=== PATIENT | male | born 1985 | race Caucasian/White ===

== ENCOUNTER 2016-12-07 21:34 | Emergency (ER) | payer MEDICAID ==
[~2016-12-07] VITALS: Ht 193 cm; Wt 127.5 kg
[~2016-12-07 21:34] MED LIST: ALPR0.5T6 PO; ATEN50TA41 PO; DIPH25CA61 PO; DISU500T PO; FAMO20TA7 PO; FLUO20CA8 PO; HYDR-3241 PO; LISI-167 PO; ONDA-39 PO
[2016-12-08] MEDS ORDERED: MORPHINE SULFATE 4 MG/ML, 1ML ONE ×2 (00:19→01:04)
[2016-12-08] MEDS ORDERED: ONDANSETRON 2MG/ML, 2ML ONE (00:19)
[2016-12-08] MEDS: MORPHINE SULFATE 4 MG/ML, 1ML IVPush PRN ×2 (00:22→01:05)
[2016-12-08] MEDS ORDERED: ONDANSETRON 2MG/ML, 2ML IVPush ONE (00:30)
[2016-12-08] MEDS ORDERED: SODIUM CHLORIDE 0.9% 1,000ML IVBOLUS ONE (00:30)
[2016-12-08 00:42] LABS: ASPARTATE AMINO TRANSFERASE 65 U/L (15-37); BLOOD UREA NITROGEN 6 mg/dL (7-18)
[2016-12-08 02:15] VITALS: BP 130/80
== END 2016-12-08 02:43 | disposition home or self-care (01) ==
LOC: ED 23:58
DX: K29.20 Alcoholic gastritis without bleeding (principal); I10 Essential (primary) hypertension; R10.13 Epigastric pain; E87.6 Hypokalemia
CPT/HCPCS: 36415; 80053; 80307; 81001; 83690; 85025; 87086; 96361; 96374; 96375; 96376; 99284; J2405; J7030

== ENCOUNTER 2016-12-23 02:24 | Emergency (ER) | payer MEDICAID ==
[~2016-12-23] VITALS: Ht 193 cm; Wt 114.2 kg
[2016-12-23] MEDS ORDERED: SODIUM CHLORIDE 0.9% 1,000ML IVBOLUS ONE (03:00)
[2016-12-23] MEDS ORDERED: SODIUM CHLORIDE FLUSH 10ML SYR IVF ONE (03:00)
[2016-12-23 05:08] LABS: BLOOD UREA NITROGEN 7 mg/dL (7-18)
[2016-12-23 05:10] LABS: ASPARTATE AMINO TRANSFERASE 84 U/L (15-37)
[2016-12-23 06:04] VITALS: BP 132/77
== END 2016-12-23 06:08 | disposition home or self-care (01) ==
LOC: ED 02:49
DX: F10.229 Alcohol dependence with intoxication, unspecified (principal); F19.90 Other psychoactive substance use, unspecified, uncomplicated; I10 Essential (primary) hypertension
CPT/HCPCS: 36415; 80053; 80307; 83690; 85025; 96360; 96361; 99285; J7030

== ENCOUNTER 2017-01-05 23:44 | Emergency (ER) | payer MEDICAID ==
[~2017-01-05] VITALS: Ht 193 cm; Wt 133.7 kg
[2017-01-05 23:47] VITALS: BP 149/98
[2017-01-06] MEDS ORDERED: TRAM50TA2 PO (00:02)
[2017-01-06] MEDS ORDERED: MORPHINE SULFATE 4 MG/ML, 1ML ONE (00:17)
[2017-01-06] MEDS ORDERED: ONDANSETRON 2MG/ML, 2ML ONE (00:18)
[2017-01-06] MEDS ORDERED: FAMOTIDINE 20 MG/2 ML ONE (00:18)
[2017-01-06] MEDS ORDERED: MORPHINE SULFATE 4 MG/ML, 1ML IVPush PRN (00:30)
[2017-01-06] MEDS ORDERED: FAMOTIDINE 20 MG/2 ML IVP ONE (00:30)
[2017-01-06] MEDS ORDERED: SODIUM CHLORIDE 0.9% 1,000ML IVBOLUS ONE (00:30)
[2017-01-06] MEDS ORDERED: ONDANSETRON 2MG/ML, 2ML IVPush ONE (00:30)
[2017-01-06 00:49] LABS: ASPARTATE AMINO TRANSFERASE 85 U/L (15-37); BLOOD UREA NITROGEN 2 mg/dL (7-18)
[2017-01-06] MEDS ORDERED: DIAZEPAM 5 MG TABLET PO ONE (02:30)
[2017-01-06] MEDS ORDERED: DIAZEPAM 5 MG TABLET ONE (02:33)
== END 2017-01-06 02:38 | disposition home or self-care (01) ==
LOC: ED 23:59
DX: K29.20 Alcoholic gastritis without bleeding (principal); R10.13 Epigastric pain; E87.6 Hypokalemia; I10 Essential (primary) hypertension; F10.20 Alcohol dependence, uncomplicated
CPT/HCPCS: 36415; 80053; 80307; 81001; 83690; 85025; 96361; 96374; 96375; 99284; J2405; J7030; S0028

== ENCOUNTER 2017-01-23 12:58 | Emergency (ER) | payer MEDICAID ==
[~2017-01-23] VITALS: Ht 193 cm; Wt 124.1 kg
[~2017-01-23 12:58] MED LIST changes: +TRAM50TA2 PO
[2017-01-23] MEDS ORDERED: SODIUM CHLORIDE FLUSH 10ML SYR IVF ONE (14:00)
[2017-01-23] MEDS ORDERED: SODIUM CHLORIDE 0.9% 1,000ML IVBOLUS ONE (14:00)
[2017-01-23] MEDS ORDERED: ONDANSETRON 2MG/ML, 2ML IVPush ONE (14:00)
[2017-01-23] MEDS ORDERED: ONDANSETRON 2MG/ML, 2ML ONE (14:04)
[2017-01-23] MEDS ORDERED: HYDROmorphone 1 MG/ML, 1ML ONE ×2 (14:04→15:19)
[2017-01-23] MEDS: HYDROmorphone 1 MG/ML, 1ML IVPush PRN ×2 (14:12→15:22)
[2017-01-23 14:18] LABS: BLOOD UREA NITROGEN 7 mg/dL (7-18)
[2017-01-23 14:21] LABS: ASPARTATE AMINO TRANSFERASE 106 U/L (15-37)
[2017-01-23] MEDS ORDERED: FAMOTIDINE 20 MG/2 ML ONE (15:19)
[2017-01-23 16:58] VITALS: BP 153/83
== END 2017-01-23 17:02 | disposition home or self-care (01) ==
LOC: ED 16:00
DX: R10.84 Generalized abdominal pain (principal); I10 Essential (primary) hypertension; F10.20 Alcohol dependence, uncomplicated; Y90.9 Presence of alcohol in blood, level not specified
CPT/HCPCS: 36415; 80053; 81001; 83690; 85025; 85610; 96361; 96374; 96375; 99285; J1170; J2405; J7030

== ENCOUNTER 2017-02-15 15:24 | Emergency (ER) | payer MEDICAID ==
[~2017-02-15] VITALS: Ht 193 cm; Wt 122.2 kg
[~2017-02-15 15:24] MED LIST changes: +CLON-364 PO; +GABA300C10 PO
[2017-02-15 15:35] VITALS: BP 137/74
[2017-02-15] MEDS ORDERED: SODIUM CHLORIDE 0.9% 1,000ML IVBOLUS ONE (16:00)
[2017-02-15] MEDS ORDERED: SODIUM CHLORIDE FLUSH 10ML SYR IVF ONE (16:00)
[2017-02-15 16:28] LABS: ASPARTATE AMINO TRANSFERASE 62 U/L (15-37); BLOOD UREA NITROGEN 6 mg/dL (7-18)
[2017-02-15] MEDS ORDERED: IBUPROFEN 200 MG TABLET PO ONE (17:30)
== END 2017-02-15 18:32 | disposition home or self-care (01) ==
LOC: ED 16:36
DX: M25.572 Pain in left ankle and joints of left foot (principal); M25.571 Pain in right ankle and joints of right foot; M79.672 Pain in left foot; M79.671 Pain in right foot; I10 Essential (primary) hypertension
CPT/HCPCS: 36415; 80053; 80307; 84550; 85025; 99284

== ENCOUNTER 2017-03-26 08:41 | Emergency (ER) | payer MEDICAID, OTHER ==
[~2017-03-26] VITALS: Ht 190.5 cm; Wt 125.0 kg
[2017-03-26 09:24] LABS: ASPARTATE AMINO TRANSFERASE 59 U/L (15-37); BLOOD UREA NITROGEN 3 mg/dL (7-18)
[2017-03-26] MEDS ORDERED: MAALOX/HYOSCYAMINE/LIDOCAINE 45 ML BTL ONE (09:46)
[2017-03-26] MEDS ORDERED: MAALOX/HYOSCYAMINE/LIDOCAINE 45 ML BTL PO ONE (10:00)
[2017-03-26] MEDS ORDERED: POTASSIUM CHLORIDE 20 MEQ PACKET PO ONE (10:00)
[2017-03-26 11:10] VITALS: BP 129/78
== END 2017-03-26 11:11 | disposition home or self-care (01) ==
LOC: ED 08:47
DX: K29.00 Acute gastritis without bleeding (principal); F10.220 Alcohol dependence with intoxication, uncomplicated; I10 Essential (primary) hypertension
CPT/HCPCS: 36415; 80053; 80307; 83690; 85025; 99284

== ENCOUNTER 2017-04-17 10:26 | Emergency (ER) | payer OTHER ==
[~2017-04-17] VITALS: Ht 193 cm; Wt 118.0 kg
[~2017-04-17 10:26] MED LIST changes: -ONDA-39 PO; +ONDA4TAB12 PO
[2017-04-17] MEDS ORDERED: SODIUM CHLORIDE 0.9% 1,000 ML IV ONE (10:59)
[2017-04-17] MEDS ORDERED: SODIUM CHLORIDE FLUSH 10ML SYR IVF ONE (11:00)
[2017-04-17] MEDS ORDERED: FAMOTIDINE 20 MG/2 ML IVP ONE (11:00)
[2017-04-17] MEDS ORDERED: ONDANSETRON 2MG/ML, 2ML IVPush ONE (11:00)
[2017-04-17] MEDS ORDERED: SODIUM CHLORIDE 0.9% 1,000ML IVBOLUS ONE (11:00)
[2017-04-17] MEDS ORDERED: ONDANSETRON 2MG/ML, 2ML ONE (11:07)
[2017-04-17] MEDS ORDERED: FAMOTIDINE 20 MG/2 ML ONE (11:07)
[2017-04-17 12:00] LABS: HEMATOCRIT 47.5 % (39.2-51.8); HEMOGLOBIN 16.3 g/dL (13.7-18.0); WHITE BLOOD COUNT 3.8 x10^3/uL (3.4-10)
[2017-04-17 12:11] LABS: ASPARTATE AMINO TRANSFERASE 102 U/L (15-37); BLOOD UREA NITROGEN 2 mg/dL (7-18)
[2017-04-17] MEDS ORDERED: METOCLOPRAMIDE 5 MG/ML, 2ML IVPush ONE (14:00)
[2017-04-17] MEDS ORDERED: MORPHINE SULFATE 4 MG/ML, 1ML IVPush PRN (14:00)
[2017-04-17 15:21] VITALS: BP 127/71
== END 2017-04-17 15:27 | disposition home or self-care (01) ==
LOC: ED 14:33
DX: K29.20 Alcoholic gastritis without bleeding (principal); R10.84 Generalized abdominal pain; K85.90 Acute pancreatitis without necrosis or infection, unspecified; K70.9 Alcoholic liver disease, unspecified; F10.20 Alcohol dependence, uncomplicated; I10 Essential (primary) hypertension
CPT/HCPCS: 36415; 74022; 76700; 80053; 83690; 85025; 85610; 93005; 96361; 96374; 96375; 99285; J2405; J2765; J7030; S0028

== ENCOUNTER 2017-05-30 06:52 | Emergency (ER) | payer MEDICAID ==
[~2017-05-30] VITALS: Ht 193 cm; Wt 113.8 kg
[2017-05-30] MEDS ORDERED: MAALOX/HYOSCYAMINE/LIDOCAINE 45 ML BTL ONE (07:13)
[2017-05-30 07:26] LABS: HEMATOCRIT 44.7 % (39.2-51.8); HEMOGLOBIN 15.6 g/dL (13.7-18.0); WHITE BLOOD COUNT 9.1 x10^3/uL (3.4-10)
[2017-05-30] MEDS ORDERED: MAALOX/HYOSCYAMINE/LIDOCAINE 45 ML BTL PO ONE (07:30)
[2017-05-30 07:36] LABS: BLOOD UREA NITROGEN 6 mg/dL (7-18)
[2017-05-30 07:37] LABS: ASPARTATE AMINO TRANSFERASE 37 U/L (15-37)
[2017-05-30 08:32] VITALS: BP 118/63
== END 2017-05-30 08:34 | disposition home or self-care (01) ==
LOC: ED 08:08
DX: R10.13 Epigastric pain (principal); I10 Essential (primary) hypertension; Z72.9 Problem related to lifestyle, unspecified
CPT/HCPCS: 36415; 80053; 83690; 85025; 93005; 99285

== ENCOUNTER 2017-05-30 10:34 | Emergency (ER) | payer MEDICAID ==
[~2017-05-30] VITALS: Ht 190.5 cm; Wt 116.8 kg
[2017-05-30 10:48] VITALS: BP 124/64
== END 2017-05-30 11:48 | disposition home or self-care (01) ==
LOC: ED 11:10
DX: F12.10 Cannabis abuse, uncomplicated (principal); G89.29 Other chronic pain; R10.9 Unspecified abdominal pain; F10.229 Alcohol dependence with intoxication, unspecified
CPT/HCPCS: 99283

== ENCOUNTER 2017-05-31 00:34 | Emergency (ER) | payer MEDICAID ==
[~2017-05-31] VITALS: Ht 190.5 cm; Wt 114.0 kg
[2017-05-31 00:47] VITALS: BP 162/99
[2017-05-31] MEDS ORDERED: LORazepam 1MG TABLET ONE (01:56)
[2017-05-31] MEDS ORDERED: LORazepam 1MG TABLET PO ONE (02:00)
== END 2017-05-31 02:13 | disposition home or self-care (01) ==
LOC: ED 01:05
DX: R44.1 Visual hallucinations (principal); R44.0 Auditory hallucinations; F41.9 Anxiety disorder, unspecified; G89.29 Other chronic pain; I10 Essential (primary) hypertension; F12.10 Cannabis abuse, uncomplicated
CPT/HCPCS: 99284

== ENCOUNTER 2017-06-14 00:45 | Emergency (ER) | payer MEDICAID ==
[~2017-06-14] VITALS: Ht 190.5 cm; Wt 112.9 kg
[2017-06-14 03:01] LABS: HEMOGLOBIN 13.4 g/dL (13.7-18.0); WHITE BLOOD COUNT 5.9 x10^3/uL (3.4-10)
[2017-06-14 03:10] LABS: BLOOD UREA NITROGEN 6 mg/dL (7-18)
[2017-06-14 03:13] LABS: ASPARTATE AMINO TRANSFERASE 31 U/L (15-37)
[2017-06-14 04:06] VITALS: BP 138/89
== END 2017-06-14 04:10 | disposition home or self-care (01) ==
LOC: ED 03:59
DX: G89.29 Other chronic pain (principal); R10.13 Epigastric pain; R31.29 Other microscopic hematuria; F10.229 Alcohol dependence with intoxication, unspecified; I10 Essential (primary) hypertension
CPT/HCPCS: 36415; 80053; 81001; 83690; 85025; 87086; 99284